=== PATIENT | male | born 1965 | race Two or more races ===

== ENCOUNTER 2025-02-27 08:10 | Inpatient (IN) | payer MEDICAID, OTHER ==
[~2025-02-27] VITALS: Ht 172.7 cm; Wt 81.6 kg
[2025-02-27 08:44] LABS: PLATELET COUNT (AUTO) 158 K/uL (152-348); RED BLOOD CELL COUNT(AUTO) 5.99 MIL/uL (4.06-5.63); RED CELL DISTRIBUTION WIDTH 13.6 % (12.1-16.2); WHITE BLOOD COUNT (AUTO) 16.0 K/uL (3.6-10.2)
[2025-02-27 08:50] LABS: *BILIRUBIN,URIN NEGATIVE (NEGATIVE); *CLARITY,URINE CLOUDY (CLEAR); *COLOR,URINE YELLOW (YELLOW); *KETONES,URINE NEGATIVE (NEGATIVE); *PROTEIN,URINE NEGATIVE (NEGATIVE); *UROBILINOGEN,URINE 0.2 E.U./dl (NORMAL); LEUKOCYTE ESTERASE ,URINE NEGATIVE (NEGATIVE); NITRITE, URINE NEGATIVE (NEGATIVE)
[2025-02-27 08:54] LABS: CREATININE 1.2 mg/dL (0.6-1.3); SODIUM SERUM 140 mmol/L (136-145); UREA NITROGEN, BLOOD 15 mg/dL (7-18)
[2025-02-27 08:57] LABS: *BLOOD, URINE TRACE (NEGATIVE); UGLUCOSE 2+ (NEGATIVE)
[2025-02-27 08:58] LABS: ETHANOL < 3 MG/DL (0-10)
[2025-02-27 09:00] LABS: ASPARTATE AMINOTRANSFERASE 22 U/L (15-37); TOTAL PROTEIN, SERUM 7.9 g/dL (6.4-8.2)
[2025-02-27 09:03] LABS: LACTIC ACID 6.2 mmol/L (0.4-2.0)
[2025-02-27 09:09] LABS: SQUAMOUS EPITHELIAL CELL,UR FEW /HPF (NONE SEEN)
[2025-02-27 09:10] LABS: *AMPHETAMINE, URINE NEGATIVE (NEGATIVE); *BARBITURATE, URINE NEGATIVE (NEGATIVE); *BENZODIAZEPINE, URINE NEGATIVE (NEGATIVE); *CANNABINOID, URINE NEGATIVE (NEGATIVE); *COCCAINE, URINE NEGATIVE (NEGATIVE); *OPIATE, URINE NEGATIVE (NEGATIVE); *PHENCYCLIDINE SCREEN,URINE NEGATIVE (NEGATIVE); FENTANYL, URINE NEGATIVE (NEGATIVE)
[2025-02-27 09:17] LABS: EOSINOPHILS % (MANUAL) 1 % (0-8); LYMPHOCYTES % (MANUAL) 15 % (20-40); MONOCYTES % (MANUAL) 2 % (2-10); NEUTROPHILS % (MANUAL) 85 % (42-75); PLATELET ESTIMATE ADEQUATE
[2025-02-27] MEDS ORDERED: LISI2.5T14 PO (09:27)
[2025-02-27] MEDS ORDERED: SILD50TA PO (09:27)
[2025-02-27] MEDS ORDERED: ASPI-869 PO (09:27)
[2025-02-27] MEDS ORDERED: LEVO25TA9 PO (09:27)
[2025-02-27] MEDS ORDERED: IBUP-1953 PO (09:27)
[2025-02-27] MEDS ORDERED: FAMO-132 PO (09:27)
[2025-02-27] MEDS ORDERED: LORA10CA PO (09:27)
[2025-02-27] MEDS: CEFTRIAXONE 2 G in IV DEXTROSE 5% 100 ML IV ONE (09:28)
[2025-02-27] MEDS: IV NORMAL SALINE 1000 ML BAG IV ONE (09:28)
[2025-02-27] MEDS ORDERED: ASPIRIN 300 MG RECTAL SUPP RC ONE (10:51)
[2025-02-27] MEDS ORDERED: LORAZEPAM 2 MG/1 ML VIAL ONE (10:51)
[2025-02-27] MEDS: ASPIRIN 300 MG RECTAL SUPP RC ONE (11:01)
[2025-02-27] MEDS: LORAZEPAM 2 MG/1 ML VIAL IV ONE (11:01)
[2025-02-27] MEDS ORDERED: IOHEXOL 350 100 ML INFUS..BTL ONE (11:14)
[2025-02-27] MEDS ORDERED: ENOXAPARIN SODIUM 40 MG/0.4 ML DISP.SYRIN SQ SCH (11:30)
[2025-02-27] MEDS ORDERED: DEXTROSE 50% 50 ML DISP.SYRIN IV PRN (11:30)
[2025-02-27 11:40] VITALS: BP 149/71; TEMP 97.6; O2SAT 96
[2025-02-27] MEDS ORDERED: BLOOD SUGAR DIAGNOSTIC 1 EACH STRIP VI SCH ×2 (11:45→12:00)
[2025-02-27] MEDS: BLOOD SUGAR DIAGNOSTIC 1 EACH STRIP VI SCH (12:00)
[2025-02-27 12:07] LABS: PLATELET COUNT (AUTO) 176 K/uL (152-348); RED BLOOD CELL COUNT(AUTO) 5.55 MIL/uL (4.06-5.63); RED CELL DISTRIBUTION WIDTH 13.6 % (12.1-16.2); WHITE BLOOD COUNT (AUTO) 17.8 K/uL (3.6-10.2)
[2025-02-27 12:14] LABS: CREATININE 0.8 mg/dL (0.6-1.3); SODIUM SERUM 138.0 mmol/L (136-145); UREA NITROGEN, BLOOD 11.0 mg/dL (7-18)
[2025-02-27] MEDS ORDERED: INSULIN REGULAR, HUMAN 1000 UNIT/10 ML VIAL ONE (13:10)
[2025-02-27] MEDS: INSULIN REGULAR, HUMAN 1000 UNIT/10 ML VIAL SQ PRN (13:18)
[2025-02-27] MEDS: VANCOMYCIN IV 1,250 MG in IV DEXTROSE 5% 250 ML IV SCH (13:21)
[2025-02-27 14:00] VITALS: BP 150/82; O2SAT 99
[2025-02-27] MEDS: CEFEPIME HCL 1 G in IV DEXTROSE 5% 50 ML IV SCH (14:00)
[2025-02-27] MEDS ORDERED: SIMVASTATIN 40 MG TABLET PO SCH (21:00)
[2025-02-27] MEDS ORDERED: CLONIDINE-TTS 1 PATCH TD ONE (23:42)
[2025-02-28] MEDS ORDERED: LEVOTHYROXINE SODIUM 25 MCG TABLET PO SCH (07:00)
[2025-02-28] MEDS ORDERED: PANTOPRAZOLE SODIUM 40 MG VIAL IV SCH (09:00)
[2025-02-28] MEDS ORDERED: ASPIRIN 300 MG RECTAL SUPP RC SCH ×2 (09:00)
== END 2025-02-27 14:30 | disposition short-term general hospital (02) | DRG 45 ==
LOC: ER 08:10 → TELE3 10:51
PROVIDERS: ADMIT Student in an Organized Health Care Education/Training Program; ATTEND Student in an Organized Health Care Education/Training Program
DX: I63.512 Cerebral infarction due to unspecified occlusion or stenosis of left middle cerebral artery (principal); I77.71 Dissection of carotid artery; J69.0 Pneumonitis due to inhalation of food and vomit; E87.20 Acidosis, unspecified; G81.91 Hemiplegia, unspecified affecting right dominant side; E11.65 Type 2 diabetes mellitus with hyperglycemia; D72.829 Elevated white blood cell count, unspecified; I50.9 Heart failure, unspecified; I11.0 Hypertensive heart disease with heart failure; E03.9 Hypothyroidism, unspecified; R29.810 Facial weakness; R47.9 Unspecified speech disturbances; R29.723 NIHSS score 23; Z91.148 Patient's other noncompliance with medication regimen for other reason; Z72.0 Tobacco use; S00.81XA Abrasion of other part of head, initial encounter; X58.XXXA Exposure to other specified factors, initial encounter; Y92.481 Parking lot as the place of occurrence of the external cause; Z79.82 Long term (current) use of aspirin; Z86.73 Personal history of transient ischemic attack (TIA), and cerebral infarction without residual deficits; M50.30 Other cervical disc degeneration, unspecified cervical region; R45.1 Restlessness and agitation
CPT/HCPCS: 36415; 70030-TC; 70450; 70496; 71045; 72125; 83605; 84443; 84484; 85025; 85730; 86850; 86900; 86901; 87040; 93005; A4606; A4663; C1758; G0378; G0480; J0692; J0696; J1815; J2060; J7040; J7050; Q9967